=== PATIENT | male | born 1955 | race Caucasian/White ===

== ENCOUNTER → 2020-09-09 | Outpatient (CLI) | payer OTHER | END | disposition home or self-care (01) | LOC: ROC 09:03 | PROVIDERS: ATTEND Radiology Radiation Oncology | DX: C61 Malignant neoplasm of prostate (principal); I10 Essential (primary) hypertension | CPT/HCPCS: 99214; G0463 ==

== ENCOUNTER 2020-09-21 09:03 | Outpatient (CLI) | payer OTHER ==
[2020-09-21] MEDS ORDERED: LEUPROLIDE (ELIGARD) 22.5 MG SYR SQ ONE (09:30)
== END 2020-09-21 23:59 | disposition home or self-care (01) ==
LOC: ROC 09:03
PROVIDERS: ATTEND Radiology Radiation Oncology
DX: Z51.11 Encounter for antineoplastic chemotherapy (principal); C61 Malignant neoplasm of prostate; I10 Essential (primary) hypertension
CPT/HCPCS: 96402; J9217

== ENCOUNTER 2020-10-19 07:17 | Outpatient (CLI) | payer OTHER | END 2020-10-19 23:59 | disposition home or self-care (01) | LOC: ROC 07:17 | PROVIDERS: ATTEND Radiology Radiation Oncology | DX: Z08 Encounter for follow-up examination after completed treatment for malignant neoplasm (principal); Z85.46 Personal history of malignant neoplasm of prostate; I10 Essential (primary) hypertension | CPT/HCPCS: 99213; G0463 ==